=== PATIENT | female | born 1950 | race African-American/Black ===

== ENCOUNTER 2020-09-22 13:54 | Outpatient (CLI) | payer MEDICARE, SELFPAY ==
--- NOTE | 2020-09-22 14:00 | ECG_ITS ---
Measurements Intervals [place] Rate: 96 P: SC: 0 QRS: 58 QRSD: 88 T: 0 QT: 359 QTc: 454 Interpretive Statements ATRIAL FLUTTER/TACHYCARDIA BORDERLINE ST-T WAVE ABNORMALITY- INFERIOR LEADS ABNORMAL ECG Electronically Signed On 09-22-2020 14:37:49 CDT by Ino Betancourt D.O.
== END 2020-09-22 13:55 | disposition home or self-care (01) ==
LOC: ANHSURGERY 13:59
PROVIDERS: PCP Internal Medicine Endocrinology, Diabetes & Metabolism; Visit Provider Obstetrics & Gynecology
DX: Z01.810 Encounter for preprocedural cardiovascular examination (principal); R00.0 Tachycardia, unspecified; I48.92 Unspecified atrial flutter; I10 Essential (primary) hypertension
CPT/HCPCS: 93005

== ENCOUNTER → 2020-09-25 01:43 | Outpatient (CLI) | payer MEDICARE, SELFPAY ==
[2020-09-25 19:55] LABS: SARS-CoV-2 RNA PCR Negative
== END ==
PROVIDERS: PCP Internal Medicine Endocrinology, Diabetes & Metabolism; Visit Provider Obstetrics & Gynecology
DX: Z01.812 Encounter for preprocedural laboratory examination (principal); Z20.822 Contact with and (suspected) exposure to COVID-19
CPT/HCPCS: C9803; U0003; U0005

== ENCOUNTER 2020-09-29 02:09 | Day surgery (SDC) | payer MEDICARE, SELFPAY ==
[2020-09-17 14:40] VITALS: BMI 50.8
--- NOTE | 2020-09-28 13:05 | WPDANESEPPF ---
Anes - Initial Pre Proc Eval Procedure: Operation Date: 09/29/20 10:30 Proposed Procedures p Dilation and Curettage - Miguel Schwartz MD Date/Time: 09/28/20 13:05 Surgeon: Miguel Schwartz MD Pre Op Diagnosis: post menopausal bleeding, thickened endometrium Patient Data Age: 70 Gender: F Height: 1.6 m Weight: 130 kg Allergies Allergy/AdvReac Type Severity Reaction Status Date / Time Penicillins Allergy Severe Rash, Verified 09/29/20 08:46 DIFFICULTY TO BREATHE erythromycin base Allergy Unknown Rash Verified 09/29/20 08:46 SLO-BID Allergy Intermediate NEURO Uncoded 09/29/20 08:46 MUSCULAR PROBLEM WITH ARMS Home Medications Medication Instructions Recorded Confirmed Type albuterol 90 mcg/actuation aerosol 90 mcg INHALATION Q4-6H PRN 03/13/19 09/22/20 History inhaler allopurinol 300 mg tablet 300 mg PO DAILY #10 tablet 03/13/19 09/22/20 Rx cholecalciferol (vitamin D3) 125 5,000 unit PO 3XW 03/13/19 09/29/20 History mcg (5,000 unit) capsule diltiazem HCl 120 mg 120 mg PO HS 03/13/19 09/22/20 History capsule,extended release 24 hr folic acid 1 mg tablet 1 mg PO DAILY 03/13/19 09/29/20 History furosemide 20 mg tablet 20 mg PO QAM 03/13/19 09/22/20 History levothyroxine 75 mcg tablet 75 mcg PO QAM 03/13/19 09/29/20 History methotrexate sodium 2.5 mg tablet 20 mg PO WEEKLY 03/13/19 09/22/20 History metoprolol succinate 50 mg 50 mg PO BID 03/13/19 09/29/20 History tablet,extended release 24 hr adalimumab 40 mg/0.8 mL See Rx Instructions SUBCUT .COMPLEX 08/16/20 09/22/20 History subcutaneous syringe kit rosuvastatin 10 mg tablet 10 mg PO DAILY 08/16/20 09/22/20 History spironolactone 50 mg tablet 25 mg PO QAM tablet 08/16/20 09/22/20 History prednisone 5 mg tablet 5 mg PO DAILY 09/08/20 09/29/20 History apixaban [Eliquis] 5 mg PO BID 09/17/20 09/29/20 History difluprednate [Durezol] 1 drp EACH EYE BID 09/17/20 09/22/20 History irbesartan 300 mg PO QAM 09/17/20 09/22/20 History lactobacillus combination no.8 3,000 mmu cells PO DAILY 09/17/20 09/22/20 History [Adult Probiotic] metoprolol succinate 25 mg PO QAM 09/17/20 09/29/20 History pantoprazole 40 mg PO QAM 09/17/20 09/17/20 History misoprostol 200 mcg tablet 200 mcg PO QAM AND QHS #2 tablet 09/28/20 09/29/20 Rx Patient hx anesthesia problems: none Family hx anesthesia problems: none PMFSH Past Medical History Medical History Abnormal colonoscopy Acid reflux Asthma Atrial fibrillation Diabetes DVT (deep venous thrombosis) High blood cholesterol Hypertension Hypothyroidism Macular hole of left eye Had repaired in 2018 On home O2 PRN with exertion Pneumonia Pulmonary embolism Rheumatoid arthritis Thyroid condition Surgical History Surgical History H/O cardiac radiofrequency ablation H/O section x2 H/O colectomy H/O dilation and curettage History of carpal tunnel release History of cataract surgery both eyes History of detached retina repair History of knee replacement bilateral History of vitrectomy left eye Hx of tubal ligation Family History Family History Father Hypertension Cerebrovascular accident Hyperlipidemia Mother Acute myocardial infarction Cerebrovascular accident Hypertension Hyperlipidemia Grandparent Carcinoma of colon Sibling Carcinoma of colon Acute myocardial infarction Hyperlipidemia Hypertension Social History Social History Smoking status: Never smoker Alcohol intake: current Substance use: never Living arrangements: with family Additional living arrangements comments: DAUGHTER Spiritual care concerns: No Anes - Eval Final PreProcedure Day of Procedure 09/28/20 13:05 Patient thaddeusagnes
--- NOTE | 2020-09-28 15:53 | PM.IMHP ---
H&P: HPI History of Present Illness Date/Time: 09/28/20 0922 She was evaluated initially in August due to vaginal irritation and discharge. On exam she was noted to have small amount of blood at cervix. She declined noticing any bleeding in underwear or with wiping. A pelvic ultrasound was performed to evaluate endometrial lining and was noted to be thickend at 7mm. Small fibroids also noted. She was recommended for endometrial sampling. Attempted endometrial biopsy in office and unable to obtain due to cervical stenosis. She was recommend for dilation and currettage, possible hysteroscopy. She has been informed of risk and benefits to procedure. Risk of not obtaining adequate endometrial sampling which includes inability to diagnose and treat any abnormal cells if present. She agrees to procedure. 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 Chief Complaint: Thickenend endometrium on ultrasound. Review of Systems Review of Systems: All systems reviewed & are unremarkable except as noted in HPI and below Cardiovascular: Cardiovascular: Reports no additional cardiovascular complaints, Denies chest pain and Denies dyspnea Respiratory: Respiratory: Reports no additional respiratory complaints and Denies dyspnea Gastrointestinal: Gastrointestinal: Reports abdominal pain, Denies change in bowel habits, Denies diarrhea, Denies nausea and Denies vomiting Genitourinary: Genitourinary: Reports pelvic pain Musculoskeletal: Musculoskeletal: Reports back pain Integumentary/Breasts: Skin/Breast: Reports system reviewed and no additional complaints, except as docu Neurologic: Reports system reviewed and no additional complaints, except as documented [facility] Past Medical History Medical History (Updated 09/28/20 @ 21:40 by Miguel Schwartz MD) Abnormal colonoscopy Acid reflux Asthma Atrial fibrillation Diabetes DVT (deep venous thrombosis) High blood cholesterol Hypertension Hypothyroidism Macular hole of left eye Had repaired in 2019 On home O2 PRN with exertion Pneumonia Pulmonary embolism Rheumatoid arthritis Thyroid condition Surgical History Surgical History (Updated 09/22/20 @ 14:40 by Clotilde Castanon MA) H/O cardiac radiofrequency ablation H/O section x2 H/O colectomy H/O dilation and curettage History of carpal tunnel release History of cataract surgery both eyes History of detached retina repair History of knee replacement bilateral History of vitrectomy left eye Hx of tubal ligation Family History Family History Father Hypertension Cerebrovascular accident Hyperlipidemia Mother Acute myocardial infarction Cerebrovascular accident Hypertension Hyperlipidemia Grandparent Carcinoma of colon Sibling Carcinoma of colon Acute myocardial infarction Hyperlipidemia Hypertension Social History Social History Smoking status: Never smoker Alcohol intake: current Substance use: never Additional living arrangements comments: DAUGHTER Spiritual care concerns: No Meds Home Medications and Allergies Home Medications Medication Instructions Recorded Confirmed Type albuterol 90 mcg/actuation aerosol 90 mcg INHALATION Q4-6H PRN 03/13/19 09/22/20 History inhaler allopurinol 300 mg tablet 300 mg PO DAILY #10 tablet 03/13/19 09/22/20 Rx cholecalciferol (vitamin D3) 125 5,000 unit PO 3XW 03/13/19 09/22/20 History mcg (5,000 unit) capsule diltiazem HCl 120 mg 120 mg PO HS 03/13/19 09/22/20 History capsule,extended release 24 hr folic acid 1 mg tablet 1 mg PO DAILY 03/13/19 09/22/20 History furosemide 20 mg tablet 20 mg PO QAM 03/13/19 09/22/20 History levothyroxine 75 mcg tablet 75 mcg PO QAM 03/13/19 09/22/20 History methotrexate sodium 2.5 mg tablet 20 mg PO WEEKLY 03/13/19 09/22/20 History metoprolol succinate 50 mg 50 mg P
[2020-09-29] VITALS (9 sets, daily range): BP systolic 103–146; BP diastolic 65–95; PULSE 78–108; RESP 16–22; TEMP 35.8–36.8; O2SAT 96–100; BMI 47.6
[2020-09-29] MEDS: ACETAMINOPHEN 500 MG TABLET 1000 MG PO (08:57)
[2020-09-29] MEDS: LACTATED RINGERS 1,000 ML 30 ML IV CONT (09:10)
--- NOTE | 2020-09-29 09:50 | SUR.PREOP ---
0950- Clarified IV antibiotic with Dr. Schwartz with patient's severe allergy to penicillins including rash and trouble breathing. Per Dr. Schwartz give 900MG Clindamycin IV.
--- NOTE | 2020-09-29 09:56 | WPDHPUPDATE1 ---
History and Physical Update Update Date/Time: 09/29/20 09:56 History and Physical has been reviewed, including an updated exam of the patient. There are NO changes in the patient's condition. Risks, benefits, and alternatives have been discussed and questions answered. Patient agrees to proceed with procedure.
[2020-09-29] MEDS: CLINDAMYCIN 900 MG/D5W 50 ML 900 MG/50 ML PIGGYBACK 50 MG IVPB (10:10)
--- NOTE | 2020-09-29 11:08 | PM.PROC ---
Procedure Note - Detailed Date of procedure: 09/29/20 Pre-op diagnosis: post menopausal bleeding, thickened endometrium Post-op diagnosis: same Procedure performed: Exam under anesthesia and dilation and curretage. Implants: After informed consent was obtained patient was taken to the operating room. She underwent general endotracheal anesthesia. She was placed in low lithotomy position. An exam under anesthesia was performed. No abnormalities noted on exam. She was prepped and draped in sterile fashion. Attention was turned to the vagina. Speculum bivalve was inserted. The cervix was visualized. A single-tooth tenaculum was placed on anterior lip of the cervix. The cervical os was very scarred. Could not be open with os Finders. The lacrimal duct was then used and was able to dilate the cervix to fit the smallest size of the dilator Carter dilator. The cervix was able to be dilated to a with the Carter dilator. The uterus was sounded to 6 cm. There was a small amount of dark blood while dilating the cervix. A curettage was performed the cavity palpated very atrophic minimal amount of tissue obtained. There were no abnormalities palpated. The single-tooth tenaculum was removed hemostasis was noted at the tenaculum site and at the os. The patient was eventually extubated in the operating room and taken to recovery in stable condition. Anesthesia: GETA Surgeon: Miguel Schwartz MD Estimated blood loss (mL): 5 Drains: No Packing: No Pathology: yes ( Endometrial curettings) Complications: No immediate complications Condition: stable Disposition: PACU Findings: stenotic cervical os. Cavity sounded to 6 cm. Cavity palpated atrophic.
--- NOTE | 2020-09-29 12:55 | SUR.PHASEII ---
4795- Call to Dr. Schwartz to clarify when patient is to resume her Eliquis 5MG BID. Per MD can resume Eliquis 5MG tonight 09/29/20.
== END 2020-09-29 13:12 | disposition home or self-care (01) ==
PROVIDERS: PCP Internal Medicine Endocrinology, Diabetes & Metabolism; Visit Provider Obstetrics & Gynecology
PROC: 0U5B8ZZ Destruction of Endometrium, Via Natural or Artificial Opening Endoscopic (ICD-10-PCS; CPT 58563; principal; 2020-09-29 10:30)
DX: N95.0 Postmenopausal bleeding (principal); N85.8 Other specified noninflammatory disorders of uterus; E11.9 Type 2 diabetes mellitus without complications; Z79.51 Long term (current) use of inhaled steroids; I48.91 Unspecified atrial fibrillation; E03.9 Hypothyroidism, unspecified; I10 Essential (primary) hypertension; J45.909 Unspecified asthma, uncomplicated; K21.9 Gastro-esophageal reflux disease without esophagitis; M06.9 Rheumatoid arthritis, unspecified; Z86.718 Personal history of other venous thrombosis and embolism; Z86.711 Personal history of pulmonary embolism; Z79.01 Long term (current) use of anticoagulants; E66.01 Morbid (severe) obesity due to excess calories; Z68.42 Body mass index [BMI] 45.0-49.9, adult
CPT/HCPCS: 58558; 88305; 93005; A9270; C9803; J1100; J2250; J2310; J2405; J2704; J3010; J7030; J7120; U0003; U0005